=== PATIENT | male | born 1965 | race Caucasian/White ===

== ENCOUNTER → 2018-11-08 | Outpatient (CLI) | payer OTHER ==
[~2018-11-08] MED LIST: ALBU2.5V8 INH; AMLO10TA8 PO; ASPI81TA50 PO; GADOTERATE 5 MMOL/10ML VIAL. IVP ONE; LORA10TA3 PO; MELO15TA23 PO; MONT10TA49 PO; NORT25CA PO
--- NOTE | 2018-11-08 14:42 | KCIC ---
MRI Brain with and without contrast History:Nonintractable headache, migraine headaches, muscle contractions, previous concussions Technique: Multiplanar, multi sequential pre and postcontrast MR imaging was performed of the brain. Comparison: None Findings: There is no evidence of recent infarct or cytotoxic edema. The ventricles, sulci, and cisterns are within normal limits in size and configuration. There is no significant midline shift, intraaxial mass effect, or focal abnormal extra-axial fluid collection. Not associated with significant enhancement or adjacent gliosis, there is more defined cystic focus of the inferior left basal ganglia about 1.4 cm AP by 1.2 cm in transverse, smaller focus just anteromedially. There is very mild amorphous T2 and FLAIR hyperintense signal of the bilateral parietal white matter, a few small more defined foci such as of the frontal white matter and right temporal white matter. There is no nodular parenchymal or leptomeningeal enhancement. There is preservation of the major intracranial flow-voids at the skull base. The cerebellar tonsils are normal in location. There is no significant abnormality of the pineal gland or pituitary gland. There is mild ethmoid air cell mucosal thickening greater on the left. There is complete opacification of the right maxillary sinus, likely large mucous retention cyst. The is also large left maxillary sinus mucous retention cyst about 3 cm inferiorly. There is minimal patchy fluid of the right mastoid air cells, overall aerated on the left. There is a small Thornwaldt cyst 0.5 cm.There is nonspecific heterogeneity of marrow signal of the clivus, no expansion. Impression: 1. There is no evidence of recent infarct or abnormal intracranial enhancement. Nonenhancing cystic focus of the left basal ganglia inferiorly is favored to be a prominent perivascular space. There is mild T2 and FLAIR hyperintense signal of the supratentorial parenchyma, nonspecific findings possibly due to chronic microvascular ischemic disease although white matter changes can be seen in patients with migraine headaches. 2. There is complete opacification of the right maxillary sinus, likely large mucous retention cyst or nonexpansile mucocele. There is also large left maxillary sinus mucous retention cyst. Electronically signed by: Fadi Steven MD (11/08/2018 2:39 PM) [id number]
== END | disposition home or self-care (01) ==
LOC: KCIC MRI 13:04
PROVIDERS: ATTEND Family Medicine
DX: J34.1 Cyst and mucocele of nose and nasal sinus (principal); J34.89 Other specified disorders of nose and nasal sinuses; G43.909 Migraine, unspecified, not intractable, without status migrainosus; I10 Essential (primary) hypertension
CPT/HCPCS: 70553; A9575